=== PATIENT | female | born 1980 | race Caucasian/White ===

== ENCOUNTER 2017-03-07 15:47 | Emergency (ER) | payer SELFPAY ==
[2017-03-07 15:57] VITALS: BP 104/60
--- NOTE | 2017-03-07 16:12 | UC ---
Elbow Pain - HPI Summary HPI Summary: fell this morning at work pain left elbow with abrasion full ROM also hit head no loc, - History of Current Complaint Chief Complaint: UCUpperExtremity Stated Complaint: ELBOW INJURY Time Seen by Provider: 03/07/17 16:11 Hx Obtained From: Patient Hx Last Menstrual Period: 03/06/17 ?: No Mechanism of Injury: FALL Onset/Duration: Hours - HAPPENED AT 9:30 THIS MORNING, Traumatic Severity Initially: Mild Severity Currently: Mild Pain Intensity: 3 Pain Scale Used: 0-10 Numeric Location Of Pain: Is Discrete @ - LEFT ELBOW (NO HEAD PAIN) Aggravating Factor(s): Movement Alleviating Factor(s): Rest Associated Signs And Symptoms: Positive: Negative - Allergies/Home Medications Allergies/Adverse Reactions: Allergies Allergy/AdvReac Type Severity Reaction Status Date / Time No Known Allergies Allergy Verified 03/07/17 15:53 Home Medications: Home Medications NK [No Home Medications Reported] 03/07/17 [History Confirmed 03/07/17] PMH/Surg Hx/FS Hx/Imm Hx Previously Healthy: Yes - Surgical History Surgical History: Yes Surgery Procedure, Year, and Place: CHOLECYSTECTOMY. YENNY FALLOPIAN TUBES REMOVED - Family History Known Family History: Positive: None - Social History Occupation: Employed Full-time Lives: With Family Alcohol Use: None Substance Use Type: None Smoking Status (MU): Never Smoked Tobacco - Immunization History Vaccination Up to Date: Yes Review of Systems Constitutional: Negative Skin: Negative Eyes: Negative ENT: Negative Respiratory: Negative Cardiovascular: Negative Gastrointestinal: Negative Genitourinary: Negative Motor: Negative Neurovascular: Negative Musculoskeletal: Arthralgia - LEFT ELBOW Neurological: Negative Psychological: Negative Is Patient Immunocompromised?: No All Other Systems Reviewed And Are Negative: Yes Physical Exam Triage Information Reviewed: Yes Appearance: Well-Appearing, No Pain Distress, Well-Nourished Vital Signs: Initial Vital Signs Temp 97.6 F 03/07/17 15:54 Pulse 92 03/07/17 15:54 Resp 19 03/07/17 15:54 BP 104/60 03/07/17 15:54 Pulse Ox 98 03/07/17 15:54 Vital Signs Reviewed: Yes Eye Exam: Normal Eyes: Positive: Conjunctiva Clear, Other: - pERRLA, eomi, ENT Exam: Normal ENT: Positive: Normal ENT inspection, Hearing grossly normal, Pharynx normal, TMs normal. Negative: Nasal congestion, Nasal drainage, Tonsillar swelling, Tonsillar exudate, Trismus, Muffled/hoarse voice Dental Exam: Normal Neck exam: Normal Neck: Positive: Supple, Nontender, No Lymphadenopathy Respiratory Exam: Normal Respiratory: Positive: Chest non-tender, Lungs clear, Normal breath sounds, No respiratory distress, No accessory muscle use Cardiovascular Exam: Normal Cardiovascular: Positive: RRR, No Murmur, Pulses Normal, Brisk Capillary Refill Musculoskeletal Exam: Normal Musculoskeletal: Positive: Strength Intact, ROM Intact, No Edema Neurological Exam: Normal Neurological: Positive: Alert, Muscle Tone Normal Psychological Exam: Normal Skin Exam: Normal Skin: Positive: Other - ABRASION ON LEFT ELBOW Diagnostics - Radiology No standard instances Xray Interpretation: No Acute Changes Radiology Interpretation Completed By: Radiologist Elbow Pain Course/Dx - Course Course Of Treatment: iCE, iBUPROFEN, REST KATHERINE WRAP, FOLLOW WITH ORTHO, RETURN TO URGENT OR ED SHOULD SYMPTONS FAIL TO RESOLVE OR WORSEN IN ANY WAY - Differential Dx/Diagnosis Differential Diagnosis/HQI/PQRI: Cellulitis, Contusion, Fracture (Closed), Sprain, Strain Provider Diagnoses: cONTUSION LEFT ELBOW Discharge - Discharge Plan Condition: Stable Disposition: HOME Patient Education Materials: Ibuprofen (By mouth), Contusion in Adults (ED), Abrasion (ED), Ice Pack Application (ED) Referrals: [facility] [Provider Group] - 5 Days
[2017-03-07] MEDS ORDERED: Ibuprofen TAB* 600 MG PO ONE (16:17)
--- NOTE | 2017-03-07 16:42 | RAD ---
INDICATION: Left elbow injury. TECHNIQUE: 4 views of the left elbow were obtained. FINDINGS: The bones are in normal alignment. No joint effusion or fracture is seen. Joint spaces appear maintained. IMPRESSION: NO EVIDENCE FOR FRACTURE.
== END 2017-03-07 17:23 | disposition home or self-care (01) ==
LOC: UCEAST 15:47
DX: S50.02XA Contusion of left elbow, initial encounter (principal); W04.XXXA Fall while being carried or supported by other persons, initial encounter; Y92.9 Unspecified place or not applicable; Z90.49 Acquired absence of other specified parts of digestive tract; Z90.79 Acquired absence of other genital organ(s)
CPT/HCPCS: 99212; A9270-GY; G0463

== ENCOUNTER 2018-08-03 09:43 | Emergency (ER) | payer BC, OTHER ==
--- NOTE | 2018-08-03 10:22 | ED ---
Abdominal Pain/Female - HPI Summary HPI Summary: This patient is a 37 year old F presenting to [facility] with a chief complaint of diffuse abdominal pain with N/V/D for the past three days. She reports one bout of diarrhea three days ago, with persistent diarrhea since then. Reports difficulty eating and drinking. Patient reports fever and chills. Temperature reported 100.4 at home. Abdominal pain rated 3/10 on triage that is worsened with eating. Patient denies significant medical history except for a cholecystectomy. - History of Current Complaint Chief Complaint: EDAbdPain Stated Complaint: VOMITTING, STOMACHACHE Time Seen by Provider: 08/03/18 10:11 Hx Obtained From: Patient Hx Last Menstrual Period: 04/02/17 Onset/Duration: Gradual Onset, Lasting Days Timing: Constant Pain Intensity: 3 Pain Scale Used: 0-10 Numeric Location: Diffuse Radiates: No Aggravating Factor(s): Food Alleviating Factor(s): Nothing Associated Signs and Symptoms: Positive: Fever, Nausea, Vomiting, Diarrhea Allergies/Adverse Reactions: Allergies Allergy/AdvReac Type Severity Reaction Status Date / Time No Known Allergies Allergy Verified 04/08/17 10:25 PMH/Surg Hx/FS Hx/Imm Hx Endocrine/Hematology History: Denies: Hx Diabetes Cardiovascular History: Denies: Hx Hypertension, Hx Pacemaker/ICD Respiratory History: Denies: Hx Asthma History: Denies: Hx Renal Disease Sensory History: Denies: Hx Hearing Aid Psychiatric History: Denies: Hx Panic Disorder - Surgical History Surgery Procedure, Year, and Place: CHOLECYSTECTOMY. YENNY FALLOPIAN TUBES REMOVED Infectious Disease History: No Infectious Disease History: Denies: Hx Clostridium Difficile, Hx Hepatitis, Hx Human Immunodeficiency Virus (HIV), Hx of Known/Suspected MRSA, Hx Shingles, Hx Tuberculosis, Hx Known/ Suspected VRE, Hx Known/Suspected VRSA, History Other Infectious Disease, Traveled Outside the [place] in Last 30 Days - Family History Known Family History: Positive: Other - GI disorders - Social History Alcohol Use: Rare Substance Use Type: Reports: None Smoking Status (MU): Never Smoked Tobacco Review of Systems Positive: Fever, Chills Positive: Abdominal Pain, Vomiting, Diarrhea, Nausea All Other Systems Reviewed And Are Negative: Yes Physical Exam - Summary Physical Exam Summary: Appearance: ill appearing, no pain distress Skin: warm, dry, reflects adequate perfusion Head/face: normal Eyes: EOMI, SARAH ENT: normal Neck: supple, non-tender Respiratory: CTA, breath sounds present Cardiovascular: RRR, pulses symmetrical Abdomen:, soft RLQ tenderness Musculoskeletal: normal, strength/ROM intact Neuro: normal, sensory motor intact, A&Ox3 Triage Information Reviewed: Yes Vital Signs On Initial Exam: Initial Vitals Temp Pulse Resp BP Pulse Ox 99.1 F 88 14 110/73 99 08/03/18 09:45 08/03/18 09:45 08/03/18 09:45 08/03/18 09:45 08/03/18 09:45 Vital Signs Reviewed: Yes Diagnostics - Vital Signs Vital Signs Temp Pulse Resp BP Pulse Ox 08/03/18 09:45 99.1 F 88 14 110/73 99 - Laboratory Result Diagrams: 08/03/18 10:47 08/03/18 10:47 Lab Statement: Any lab studies that have been ordered have been reviewed, and results considered in the medical decision making process. - CT CT A/P CT Interpretation Completed By: Radiologist Summary of CT Findings: 1. LIMITED NON-ORAL CONTRAST ENHANCED STUDY. THE APPENDIX IS NOT VISUALIZED . NO. INFLAMMATORY CHANGES ARE SEEN IN THE RIGHT LOWER QUADRANT. IF THE PATIENT'S SYMPTOMS. PERSIST, RECOMMEND FOLLOW-UP IMAGING. 2. STATUS POST CHOLECYSTECTOMY. 3. MILD SPLENOMEGALY, UNCHANGED. 4. MILDLY ENLARGED UTERUS, UNCHANGED. 5. SMALL INVOLUTING LEFT FOLLICULAR CYST. ED Physician has reviewed this report. Abdominal Pain Fem Course/Dx - Course Course Of Treatment: 37 year old F presenting with diffuse abdominal pain with N /V/D for the past three days. She reports one bout of diarrhea three days ago, with persistent diarrhea since then. Reports difficulty eating and drinking. Patient is given 2,000mls of IV fluids and 4mg of zofran. Labwork obtained. CT A/P reveals, " 1. LIMITED NON-ORAL CONTRAST ENHANCED STUDY. THE APPENDIX IS NOT VISUALIZED . NO. INFLAMMATORY CHANGES ARE SEEN IN THE RIGHT LOWER QUADRANT. IF THE PATIENT'S SYMPTOMS. PERSIST, RECOMMEND FOLLOW-UP IMAGING. 2. STATUS POST CHOLECYSTECTOMY. 3. MILD SPLENOMEGALY, UNCHANGED. 4. MILDLY ENLARGED UTERUS, UNCHANGED. 5. SMALL INVOLUTING LEFT FOLLICULAR CYST.", as per radiologist. Results discussed with patient. Patient will be discharged home and is instructed to follow up with Dr. Barragan (PCP) in three days. - Diagnoses Differential Diagnosis: Positive: Appendicitis, Pancreatitis, Other - gasteroenteritis Provider Diagnoses: Gastroenteritis, Diarrhea Discharge - Sign-Out/Discharge Documenting (check all that apply): Patient Departure - discharge Patient Received Moderate/Deep Sedation with Procedure: Yes - Discharge Plan Condition: Stable Disposition: HOME Prescriptions: Ondansetron ODT TAB* [Zofran 4 MG Odt TAB*] 4 mg PO Q8H PRN #20 tab.odt MDD 3 PRN Reason: Vomiting Patient Education Materials: Gastroenteritis (ED) Referrals: Katie Barragan MD [Primary Care Provider] - 3 Days Additional Instructions: RETURN TO THE EMERGENCY DEPARTMENT FOR CHANGING OR WORSENING SYMPTOMS. - Billing Disposition and Condition Condition: STABLE Disposition: Home - Attestation Statements Document Initiated by Mally: Yes Documenting Scribe: Deidre Deal Provider For Whom Mally is Documenting (Include Credential): Matt Ho MD Scribe Attestation: Deidre Nino, scribed for Matt Ho MD on 08/03/18 at 1402. Scribe Documentation Reviewed: Yes Provider Attestation: The documentation as recorded by the Deidre carvajal accurately reflects the service I personally performed and the decisions made by Matt plata MD Status of Scribe Document: Viewed
[2018-08-03] MEDS ORDERED: NS 0.9% 1000 ML** 2,000 ML IV ONE (10:23)
[2018-08-03] MEDS ORDERED: Ondansetron INJ* 2 MG/ML VIAL IV ONE (10:23)
[2018-08-03 10:58] LABS: ABS Basophils 0 10^3/ul (0-0.2); ABS Eosinophils 0.1 10^3/ul (0-0.6); ABS Lymphocytes 0.8 10^3/ul (1.0-4.8); ABS Monocytes 0.5 10^3/ul (0-0.8); ABS Nucleated RBC 0 10^3/ul; Hematocrit 42 % (35-47); Hemoglobin 13.5 g/dl (12.0-16.0); Lymphocyte % 12.1 %; Mean Corpuscular HGB Conc 32 g/dl (31-36); Mean Corpuscular Hemoglobin 26 pg (27-31); Mean Corpuscular Volume 81 fL (80-97); Mean Platelet Volume 9.9 fL (7.4-10.4); Nucleated Red Blood Cells % 0.2; Platelet Count 308 10^3/ul (150-450); Red Blood Count 5.17 10^6/ul (4.00-5.40); Red Cell Distribution Width 15 % (10.5-15); White Blood Count 6.4 10^3/ul (3.5-10.8)
[2018-08-03 11:18] LABS: Albumin 4.8 g/dL (3.2-5.2); Albumin/Globulin Ratio 1.7 (1-3); BUN/Creatinine Ratio 14.5 (8-20); C Reactive Protein 4.09 mg/L (<8.01); Calcium 9.5 mg/dL (8.6-10.3); EGFR African American 104.8 (>60); EGFR Non-African American 86.6 (>60); Globulin 2.9 g/dL (2-4); Magnesium 1.8 mg/dL (1.9-2.7); Potassium 3.8 mmol/L (3.5-5.0); Total Bilirubin 0.4 mg/dL (0.2-1.0); Total Protein 7.7 g/dL (6.4-8.9)
[2018-08-03 11:22] LABS: Activated Partial Thrombo Time 29.4 seconds (26.0-36.3); INR 1.03 (0.77-1.02)
[2018-08-03] MEDS ORDERED: Iohexol 300* (CONTRAST) 10 ML SDV IV ONE (11:30)
[2018-08-03 14:19] VITALS: BP 112/56
== END 2018-08-03 14:21 | disposition home or self-care (01) ==
LOC: ED 09:43
DX: K52.9 Noninfective gastroenteritis and colitis, unspecified (principal); R19.7 Diarrhea, unspecified; R50.9 Fever, unspecified; R11.2 Nausea with vomiting, unspecified; R10.9 Unspecified abdominal pain
CPT/HCPCS: 36415; 74177; 80053; 83605; 83690; 83735; 84484; 85025; 85610; 85730; 86140; 96374; 99283; J2405; Q9967